=== PATIENT | female | born 1990 | race Caucasian/White ===

== ENCOUNTER → 2020-05-13 09:07 | Outpatient (CLI) | payer MEDICAID, SELFPAY ==
--- NOTE | 2020-05-13 09:09 | US_ITS ---
STUDY: ABDOMINAL ULTRASOUND - RIGHT UPPER QUADRANT REASON FOR VISIT: Female, 30 years old HEP C -- HX OF CHOLECYSTECTOMY AND PANC DUCT REPAIR 2006 TECHNIQUE: Ultrasound evaluation of the right upper quadrant was performed with real-time and static stephen-scale imaging. TECHNICAL QUALITY: Adequate. COMPARISON: None. FINDINGS: Liver: The liver measures 13.6 cm. There is normal echogenicity of the liver. The bile ducts are within normal limits. There is hepatic color flow. The direction of portal flow is hepatopetal. There is no demonstrated mass lesion. Gallbladder: The patient is status post cholecystectomy. There is a 3.9 cm x 1.9 cm x 1.5 cm small fluid collection in the gallbladder fossa. Common Bile Duct (C.B.D.): The common bile duct measures 6.2 mm. Pancreas: There is nonvisualization of the pancreas due to overlying bowel gas. Right Kidney: Normal size of the right kidney. The right kidney measures 11.2 cm x 5.9 cm x 4.3 cm. Normal renal cortex. The right cortex measures 1.5 cm. There is no demonstrated renal mass or cyst. There is no right hydronephrosis. IMPRESSION: Status post cholecystectomy. Small fluid collection at the level of the gallbladder fossa. Electronically Signed: Bruno Ayan, at 11:09 EST , Service support , STUDY: ABDOMINAL ULTRASOUND - ELASTOGRAPHY REASON FOR VISIT: Female, 30 years old. History of hepatitis C. TECHNIQUE: Liver stiffness measurements were obtained on a [employer] 85 ultrasound machine using a CA 1-7 probe following the SRU guidelines. 3 measurements were obtained using a 2-D-SWE method. The IQR/M was 23% suggesting a quality data set. TECHNICAL QUALITY: Adequate. COMPARISON: None. FINDINGS: Liver: There is no demonstrated mass lesion. Median liver stiffness measured 6 kPa. US/Elastography Parenchyma/Organ IMPRESSION: Liver stiffness measures 6 kPa compatible with F2 -- F3 Metavir score. Electronically Signed: Bruno Botello, at 11:14 EST , Service support ,
--- NOTE | 2020-05-13 09:09 | US_ITS ---
STUDY: ABDOMINAL ULTRASOUND - RIGHT UPPER QUADRANT REASON FOR VISIT: Female, 30 years old HEP C -- HX OF CHOLECYSTECTOMY AND PANC DUCT REPAIR 2006 TECHNIQUE: Ultrasound evaluation of the right upper quadrant was performed with real-time and static stephen-scale imaging. TECHNICAL QUALITY: Adequate. COMPARISON: None. FINDINGS: Liver: The liver measures 13.6 cm. There is normal echogenicity of the liver. The bile ducts are within normal limits. There is hepatic color flow. The direction of portal flow is hepatopetal. There is no demonstrated mass lesion. Gallbladder: The patient is status post cholecystectomy. There is a 3.9 cm x 1.9 cm x 1.5 cm small fluid collection in the gallbladder fossa. Common Bile Duct (C.B.D.): The common bile duct measures 6.2 mm. Pancreas: There is nonvisualization of the pancreas due to overlying bowel gas. Right Kidney: Normal size of the right kidney. The right kidney measures 11.2 cm x 5.9 cm x 4.3 cm. Normal renal cortex. The right cortex measures 1.5 cm. There is no demonstrated renal mass or cyst. There is no right hydronephrosis. IMPRESSION: Status post cholecystectomy. Small fluid collection at the level of the gallbladder fossa. Electronically Signed: Bruno Ayan, at 11:09 EST , Service support , STUDY: ABDOMINAL ULTRASOUND - ELASTOGRAPHY REASON FOR VISIT: Female, 30 years old. History of hepatitis C. TECHNIQUE: Liver stiffness measurements were obtained on a [employer] 85 ultrasound machine using a CA 1-7 probe following the SRU guidelines. 3 measurements were obtained using a 2-D-SWE method. The IQR/M was 23% suggesting a quality data set. TECHNICAL QUALITY: Adequate. COMPARISON: None. FINDINGS: Liver: There is no demonstrated mass lesion. Median liver stiffness measured 6 kPa. US/Abdomen Limited IMPRESSION: Liver stiffness measures 6 kPa compatible with F2 -- F3 Metavir score. Electronically Signed: Bruno Botello, at 11:14 EST , Service support ,
== END ==
PROVIDERS: PCP Nurse Practitioner Family; Referring Provider Nurse Practitioner Family; Visit Provider Nurse Practitioner Family
DX: B19.20 Unspecified viral hepatitis C without hepatic coma (principal)
CPT/HCPCS: 76705; 76981

== ENCOUNTER 2023-08-12 10:37 | Emergency (ER) | payer MEDICAID, SELFPAY ==
[2023-08-12 10:39] VITALS: BP 157/92; PULSE 116; RESP 18; TEMP 37.3; O2SAT 100; BMI 36.8
[2023-08-12 11:04] VITALS: BP 170/111; PULSE 105
--- NOTE | 2023-08-12 11:17 | EDS_ITS ---
HPI HPI - Female History of Present Illness Chief Complaint: Female C/O Detail of Chief Complaint: Vaginal bleeding for 3 months Informant: patient Pain Pain: Negative for Pelvic Pain, Vulvar Pain or Vaginal Pain Bleeding Issue: Positive for Vaginal bleeding (Blood only when she wipes) Current Severity: Spotting Maximum Severity: Spotting Associated Symptoms Associated Symptoms: Positive for Irregular Period; Negative for Dysuria, Frequency, Urgency or Hematuria Test: Negative (X 3) Sexually: Positive for Active Control: No control Narrative Narrative: Patient is a 33-year-old woman who presents with vaginal bleeding for approximately 3 months. She noticed blood when she wipes. She does not even need to use a pad. She denies dysuria, frequency, urgency or hematuria. She denies dyspareunia. She denies history of STI. She denies vaginal discharge. She denies history of endometriosis or ovarian cyst. She states she is performed 3 home test and was negative. She denies pelvic, vaginal or abdominal pain. Prior similar symptoms: No Recent Illness/Hospitalization: No PFSH PFSH Medical History delivery delivered Cholecystectomy planned Hepatitis C Hypothyroidism Pancreatitis Home Medications doxepin 75 mg capsule 75 mg PO DAILY 08/12/23 [History Last Taken Unknown] levothyroxine 25 mcg tablet 25 mcg PO DAILY 08/12/23 [History Last Taken Unknown] norgestimate 0.18 mg/0.215 mg/0.25 mg-ethinyl estradiol 25 mcg tablet ([id number]) 1 tab PO DAILY 08/12/23 [History Last Taken Unknown] Allergy/AdvReac Type Severity Reaction Status Date / Time Penicillins AdvReac Intermediate Enlarged Verified 08/12/23 10:39 spleen Social History (Updated 08/12/23 @ 11:[address] Oral Nice MD) household members: children Smoking Status: Current every day smoker tobacco type: cigarettes ROS ROS ED Constitutional Constitutional ED: Denies chills, fever(s), subjective or sweats Eyes Eyes: Denies blurry vision, change in vision or diplopia ENT ENT ED: Denies ear pain, rhinorrhea or sore throat Cardiovascular Cardiovascular: Denies chest pain, orthopnea, palpitations or paroxysmal nocturnal dyspnea Respiratory/Chest Respiratory/Chest: Denies cough, dyspnea, dyspnea on exertion, orthopnea or paroxysmal nocturnal dyspnea Gastrointestinal Gastrointestinal: Denies abdominal pain, constipation, diarrhea, melena, nausea or vomiting Genitourinary Genitourinary ED: Denies dysuria, hematuria or urinary frequency Musculoskeletal Musculoskeletal: Denies arthralgias, myalgias or neck pain Integumentary Denies rash Hematologic/Lymphatic Hematologic/Lymphatic: Denies easy bleeding or easy bruising EXAM Physical Exam Const Vital Signs: 08/12/23 10:39 08/12/23 11:04 08/12/23 12:45 Temperature 99.1 F Temperature Source Temporal Pulse Rate 116 H 105 H 95 Respiratory Rate 18 17 Blood Pressure 157/92 H 170/111 H 139/88 H Blood Pressure Mean 113 130 105 Pulse Ox 100 Positive well nourished, well developed and obese Constitutional Narrative: Patient reports a 50 pound weight gain in the month. She states her weight has been stable since February. General Appearance ED: well developed and NAD; Negative for pallor Nutritional Appearance: obese HEENT Reports TM's clear and moist mucous membranes Tympanic Membrane ED: Yes TM's clear Eyes PERRL and EOMs intact bilaterally General Eye ED: Negative for pale conjunctiva or scleral icterus Neck no lymphadenopathy, supple and no JVD Chest Wall inspection of chest normal and palpation of chest normal Resp normal respiratory effort and clear to auscultation bilaterally Cardio regular rate, regular rhythm, S1 normal heart sound, no murmurs and no JVD GI normal to inspection, nondistended, normoactive bowel sounds, soft to palpation, non-tender, non-distended and no masses Narrative: External genitalia is normal. Vaginal mucosa is normal. Patient has scant amount of blood from the cervix. Bimanual exam is limited due to body habitus. There is no discomfort or pressure inside bladder. There is no cervical motion tenderness. There is no enlargement of the uterus. Unable to determine size of uterus. There is no adnexal tenderness. Unable to feel the ovaries. Back/Spine no CVA tenderness Extremity normal to inspection General Extremety ED: Negative for edema or tenderness General Extremity: Negative for edema Neuro oriented x3, CN's II-XII intact bilaterally and no sensory deficits noted Sensorium / Orientation: alert Psych mental status grossly normal Skin no rashes or lesions noted and no wounds General Skin Exam: Negative for jaundice or pallor MDM MDM MDM Narrative Medical decision making narrative: Will obtain urine. If there is blood in urine will workup for urologic cause. There is no blood in her urine will perform pelvic to see if there is any irritation or reason for vaginal or cervical bleeding. Serum test was obtained as well. Lab Data Attestation: I reviewed the patient's lab results. Lab results narrative: CBC is normal. UA is unremarkable. test is negative. Labs: Laboratory Results - last 24 hr 08/12/23 08/12/23 11:20 11:25 WBC 7.9 RBC 4.77 Hgb 15.0 Hct 44.6 MCV 93.5 MCH 31.4 MCHC 33.6 RDW Std Deviation 43.2 RDW Coeff of Mackenzie 12.5 Plt Count 286 MPV 9.8 Immature Gran % (Auto) 0.100 Neut % (Auto) 53.8 Lymph % (Auto) 40.3 [place] % (Auto) 4.6 Eos % (Auto) 0.8 Baso % (Auto) 0.4 Absolute Neuts (auto) 4.2 Absolute Lymphs (auto) 3.16 Nucleated RBC % 0 Serum , Qual NEGATIVE Urine Color Yellow Urine Clarity Clear Urine pH 7.0 Ur Specific Mobile 1.010 Urine Protein Negative Urine Glucose (UA) Normal Urine Ketones Negative Urine Occult Blood 50 H Urine Nitrite Negative Urine Bilirubin Negative Urine Urobilinogen Normal Ur Leukocyte Esterase Negative Urine RBC 0-5 SEEN Urine WBC 0 SEEN Ur Squamous Epith Cells 0-5 SEEN Urine Bacteria 0 SEEN Urine Mucus 0 SEEN Discharge Plan Triage Chief Complaint: Female C/O ED Provider: Oral Nice Dx/Rx/DC Orders Clinical Impression: Abnormal uterine and vaginal bleeding, unspecified Instructions: ED Dysfunctional Uterine Bleeding Prescriptions: No Action doxepin 75 mg capsule 75 mg PO DAILY Patient Comments: TAKE 1 CAPSULE BY MOUTH AT BEDTIME levothyroxine 25 mcg tablet 25 mcg PO DAILY Patient Comments: TAKE 1 TABLET BY MOUTH ONCE DAILY norgestimate-ethinyl estradiol [[id number]] 0.18/0.215/0.25 mg-25 mcg tablet 1 tab PO DAILY Patient Comments: TAKE 1 TABLET BY MOUTH ONCE DAILY Primary Care Provider: Daynaa Madison NP Referrals: Carlito Luna MD [Med Staff - Active Staff] - 1-2 Weeks Dayana Madison NP, CONTACT [facility] [Primary Care Provider] - Disposition Disposition: Home, Self Care
[2023-08-12 11:37] LABS: Bacteria 0 SEEN /hpf (None Seen); Mucous, Urine 0 SEEN /hpf (<or=2+); White Blood Cells 0 SEEN /hpf (0-5)
[2023-08-12 11:46] LABS: Color, Urine Yellow (Yellow); Glucose, Dipstick Normal (Normal); Ketone-Dipstick Negative (Negative); Leukocyte Esterase-Dipstick Negative /ul (Negative); Nitrite-Dipstick Negative (Negative); Occult Blood-Urine 50 /ul (Negative); Protein-Dipstick Negative (Negative); Urine Bilirubin Dipstick Negative (Negative); Urine Clarity Clear (Clear); Urine Urobilinogen Normal (Normal)
[2023-08-12 11:53] LABS: Red Blood Cells-Urine 0-5 SEEN /hpf (0-5); Squamous Epithelial Cells - UA 0-5 SEEN /hpf (5-10)
[2023-08-12 11:55] LABS: Absolute Lymphocyte Count 3.16 X10^3/uL (0.83-4.51); Absolute Neutrophil Count 4.2 X10^3/uL (2.0-7.7); Basophil# 0.03 X10^3/uL; Basophil% 0.4 % (0-1); Eosinophil# 0.06 X10^3/uL; Eosinophils% 0.8 % (0-5); Hematocrit 44.6 % (37-47); Lymphocyte # 3.16 X10^3/ul (0.83-4.51); Lymphocyte % 40.3 % (19-41); Mean Corp Hgb Conc 33.6 g/dL (32-36); Mean Corpuscular Hgb 31.4 pg (27.0-32.0); Mean Corpuscular Volume 93.5 fL (81-99); Mean Platelet Vol. 9.8 fl (6.2-12.0); Monocyte# 0.36 X10^3/uL; Monocyte% 4.6 % (0-10); NRBC Flagged by Analyzer 0 % (0-5); Neutrophil # 4.23 X10^3/uL (2.7-7.7); Neutrophil % 53.8 % (47-70); Platelet Count 286 K/mm3 (150-450); RBC Distribution Width CV 12.5 % (11.6-14.6); RBC Distribution Width SD 43.2 fl (35.1-43.9); Red Blood Count 4.77 M/mm3 (4.2-5.4); White Blood Count 7.9 K/mm3 (4.4-11.0)
[2023-08-12 12:45] VITALS: BP 139/88; PULSE 95; RESP 17
[2023-08-12 12:57] LABS: Internal QC Validated? YES +Cl - CLEAR BKGD; Pregnancy, Serum, hCG Quali. NEGATIVE Negative; Record Kit Lot#, Serum Preg. HCG0000718086
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
[2023-08-12 13:21] VITALS: BP 138/66; PULSE 97; RESP 14; TEMP 35.8; O2SAT 97
== END 2023-08-12 13:21 | disposition home or self-care (01) ==
PROVIDERS: Emergency Provider Emergency Medicine; PCP Nurse Practitioner Family; Visit Provider Emergency Medicine
DX: N93.9 Abnormal uterine and vaginal bleeding, unspecified (principal); F17.210 Nicotine dependence, cigarettes, uncomplicated; E03.9 Hypothyroidism, unspecified; Z79.899 Other long term (current) drug therapy
CPT/HCPCS: 81001; 84703; 85025; 99283

== ENCOUNTER 2023-08-23 13:03 | Emergency (ER) | payer MEDICAID, SELFPAY ==
[2023-08-23 13:04] VITALS: BP 124/109; PULSE 78; RESP 12; TEMP 36.5; O2SAT 96; BMI 34.4
--- NOTE | 2023-08-23 13:26 | EDS_ITS ---
HPI History of Present Illness Chief Complaint: Dizziness Informant: patient Onset/Context/Timing Onset: Today Context: Sudden Onset Timing: Intermittent and Lasts (35 minutes) Quality: Racing, beating hard Location: Chest Worsened by: Nothing Relieved by: Concentrating on something Narrative Narrative: Patient presents with palpitations and dizziness that began today. Patient states that began rather suddenly. Patient states that she was feeling palpitations and decided to drive herself to the emergency department. On the way here, she started getting tunnel vision where her vision look like it was starting to go black. Patient was able to pull off to the side of the road. Patient states she felt her heart racing and beating hard at that time. Patient states she felt like she was having some anxiety. Patient states it got better when she tried to concentrate on something. Patient states that when she relaxes her symptoms returned. Patient admits to some nausea but denies any vomiting. Patient admits to some subjective chills but denies any fevers. [facility] Medical History (Updated 08/23/23 @ 15:[address] Robert Jackson DO) delivery delivered Cholecystectomy planned Hepatitis C Hypertension Hypothyroidism Pancreatitis Home Medications doxepin 75 mg capsule 75 mg PO DAILY 08/12/23 [History Last Taken Unknown] levothyroxine 25 mcg tablet 25 mcg PO DAILY 08/12/23 [History Last Taken Unknown] norgestimate 0.18 mg/0.215 mg/0.25 mg-ethinyl estradiol 25 mcg tablet ([id number]-[id number]) 1 tab PO DAILY 08/12/23 [History Last Taken Unknown] amlodipine 5 mg tablet 5 mg PO DAILY 08/23/23 [History Last Taken Unknown] Allergy/AdvReac Type Severity Reaction Status Date / Time Penicillins AdvReac Intermediate Enlarged Verified 08/23/23 13:03 spleen Surgical History (Updated 08/23/23 @ 14:[address] Robert Jackson DO) History of pancreatic surgery Hx of section Hx of cholecystectomy Social History household members: children Smoking Status: Current every day smoker tobacco type: cigarettes ROS ROS ED Constitutional Constitutional ED: Reports chills; Denies fever(s) Eyes Eyes: Reports blurry vision and change in vision ENT ENT ED: Denies rhinorrhea or sore throat Cardiovascular Cardiovascular: Reports palpitations; Denies chest pain Respiratory/Chest Respiratory/Chest: Denies cough or dyspnea Gastrointestinal Gastrointestinal: Reports nausea; Denies vomiting Genitourinary Genitourinary ED: Denies dysuria or hematuria Musculoskeletal Musculoskeletal: Reports neck pain; Denies back pain Integumentary Denies abscess or rash Neurologic Neurologic: Reports headache(s); Denies weakness Allergic/Immunologic Allergic/Immunologic ED: Denies mouth swelling or urticaria EXAM Physical Exam Const Vital Signs: 08/23/23 13:04 08/23/23 13:10 Temperature 97.7 F L Temperature Source Temporal Pulse Rate 78 Respiratory Rate 12 Respiratory Effort Normal Non-Labored Respiratory Pattern Normal Blood Pressure 124/109 H Blood Pressure Mean 114 Pulse Ox 96 Oxygen Delivery Method Room Air Positive well nourished, well developed and obese General Appearance ED: well developed and NAD Nutritional Appearance: obese HEENT Reports moist mucous membranes Neck supple and no JVD Resp normal respiratory effort and clear to auscultation bilaterally Cardio regular rate and regular rhythm GI non-tender and non-distended Palpation: soft Neuro oriented x3, CN's II-XII intact bilaterally and no sensory deficits noted Sensorium / Orientation: alert Motor Exam: strength 5/5 throughout Psych mental status grossly normal MDM MDM MDM Narrative Medical decision making narrative: Differential diagnosis includes cardiac dysrhythmia, cardiac ischemia, electrolyte abnormality, hypothyroidism, hyperthyroidism, urinary tract infection, viral infection, pneumonia, and pneumothorax. EKG will be obtained to assess for cardiac dysrhythmia and cardiac ischemia. Chest x-ray will be obtained to assess for pneumonia and pneumothorax. CBC will be obtained to assess for leukocytosis and anemia. Basic metabolic profile will be obtained to assess for electrolyte abnormality and renal function. High-sensitivity tropon in will be obtained to assess for cardiac ischemia. TSH will be obtained to assess for hypothyroidism and hyperthyroidism. Urinalysis will be obtained to assess for urinary tract infection. COVID-19, influenza, and RSV PCR will be obtained to assess for viral illness. Lab Data Attestation: I reviewed the patient's lab results. Lab results narrative: CBC was reviewed and was essentially within normal limits. Basic metabolic profile was reviewed and was within normal limits. High-sensitivity troponin was reviewed and was normal at 3. TSH was reviewed and was normal at 0.36. Urinalysis was reviewed. There is no evidence of urinary tract infection or hematuria. COVID-19 PCR was reviewed and was negative. Influenza PCR was reviewed and was negative for influenza A and influenza B. RSV PCR was reviewed and was negative. Labs: Laboratory Results - last 24 hr 08/23/23 08/23/23 14:00 14:05 WBC 9.5 RBC 4.77 Hgb 15.2 H Hct 44.1 MCV 92.5 MCH 31.9 MCHC 34.5 RDW Std Deviation 41.2 RDW Coeff of [place] 12.0 Plt Count 266 MPV 9.9 Immature Gran % (Auto) 0.300 Neut % (Auto) 71.2 H Lymph % (Auto) 24.5 [place] % (Auto) 3.4 Eos % (Auto) 0.4 Baso % (Auto) 0.2 Absolute Neuts (auto) 6.7 Absolute Lymphs (auto) 2.32 Nucleated RBC % 0 Sodium 139 Potassium 4.7 Chloride 109 H Carbon Dioxide 26.0 Anion Gap 4 L BUN 11 Creatinine 0.76 Estim Creat Clear Calc 113.03 Est GFR (MDRD) Af Amer 110 Est GFR (MDRD) Non-Af 91 BUN/Creatinine Ratio 14.4 Glucose 93 Calcium 9.3 Troponin I High Sens 3 TSH 0.36 Urine Color Yellow Urine Clarity Sl. Cloudy Urine pH 7.0 Ur Specific [place] 1.010 Urine Protein Negative Urine Glucose (UA) Normal Urine Ketones Negative Urine Occult Blood 10 H Urine Nitrite Negative Urine Bilirubin Negative Urine Urobilinogen Normal Ur Leukocyte Esterase Negative Urine RBC 0-5 SEEN Urine WBC 0 SEEN Ur Squamous Epith Cells 0 SEEN Urine Bacteria 0 SEEN Urine Mucus 0 SEEN Radiography Diagnostic Testing: Clinical Impression(s) from Imaging Studies Chest X-Ray 08/23/23 14:38 IMPRESSION: No acute cardiopulmonary disease. Electronically Signed: Hi Moeller MD at 15:01 EST , PA and lateral chest x-ray was obtained. There are 2 views. On my independent interpretation, lung doe are clear. There is normal cardiac silhouette. Bony thorax is normal. There is no acute process noted. Radiologist also interpreted the x-ray and agrees. EKG Initial EKG: Attestation: I personally reviewed and interpreted this EKG as follows: Interpretation: Sinus Rhythm (72) and No Acute Injury Pattern Comments: EKG was obtained. On my independent interpretation, it showed a normal sinus rhythm with a rate of 72. PA interval, QRS interval, and QTc intervals were all normal. [place] was normal. There are no acute ST or T wave changes. Prior EKG tracings: not available for review Prior: No Prior Treatment and Re-Evaluation :: Smoking cessation was discussed. Patient was given IV fluids. Patient was feeling better on reevaluation. Patient was advised of her findings. Patient was instructed to drink plenty of fluids. Patient was instructed to follow-up with her primary care physician in 5 to 7 days. Patient understood and was agreeable with the plan. All questions were answered. Discharge Plan Triage Chief Complaint: Dizziness ED Provider: Robert Jackson Dx/Rx/DC Orders Clinical Impression: Heart palpitations, Hypertension Instructions: ED Palpitations Prescriptions: No Action doxepin 75 mg capsule 75 mg PO DAILY Patient Comments: TAKE 1 CAPSULE BY MOUTH AT BEDTIME levothyroxine 25 mcg tablet 25 mcg PO DAILY Patient Comments: TAKE 1 TABLET BY MOUTH ONCE DAILY norgestimate-ethinyl estradiol [Bnw-Ps-Hvazmpzoj] 0.18/0.215/0.25 mg-25 mcg tablet 1 tab PO DAILY Patient Comments: TAKE 1 TABLET BY MOUTH ONCE DAILY amlodipine 5 mg tablet 5 mg PO DAILY Patient Comments: TAKE 1 TABLET BY MOUTH ONCE DAILY Primary Care Provider: Dayana Madison NP Referrals: Dayana Madison NP, CARE ATTENDANT-C [Primary Care Provider] - 5-7 Days Disposition Disposition: Home, Self Care
--- NOTE | 2023-08-23 13:44 | EKG12_ITS ---
Test Reason : DIZZINESS Blood Pressure : / mmHG Vent. Rate : 072 BPM Atrial Rate : 072 BPM P-R Int : 158 ms QRS Dur : 082 ms QT Int : 382 ms P-R-T Axes : 033 053 042 degrees QTc Int : 418 ms Normal sinus rhythm Normal ECG Confirmed by GUERA BROWN, JULIÁN ([id number]), editor & co founder AKILA RANDOLPH ([id number]) on 08/30/2023 9:50:52 AM Referred By: Confirmed By:CRISSY LYNNE MD
[2023-08-23] MEDS: 0.9% Normal Saline (1000mL) 1,000 ML 1000 ML IV (14:03)
[2023-08-23 14:06] LABS: Bacteria 0 SEEN /hpf (None Seen); Mucous, Urine 0 SEEN /hpf (<or=2+); Squamous Epithelial Cells - UA 0 SEEN /hpf (5-10); White Blood Cells 0 SEEN /hpf (0-5)
[2023-08-23 14:18] LABS: Absolute Lymphocyte Count 2.32 X10^3/uL (0.83-4.51); Absolute Neutrophil Count 6.7 X10^3/uL (2.0-7.7); Basophil# 0.02 X10^3/uL; Basophil% 0.2 % (0-1); Eosinophil# 0.04 X10^3/uL; Eosinophils% 0.4 % (0-5); Hematocrit 44.1 % (37-47); Hemoglobin 15.2 g/dL (12.0-15.0); Lymphocyte # 2.32 X10^3/ul (0.83-4.51); Lymphocyte % 24.5 % (19-41); Mean Corp Hgb Conc 34.5 g/dL (32-36); Mean Corpuscular Hgb 31.9 pg (27.0-32.0); Mean Corpuscular Volume 92.5 fL (81-99); Mean Platelet Vol. 9.9 fl (6.2-12.0); Monocyte# 0.32 X10^3/uL; Monocyte% 3.4 % (0-10); NRBC Flagged by Analyzer 0 % (0-5); Neutrophil # 6.74 X10^3/uL (2.7-7.7); Neutrophil % 71.2 % (47-70); Platelet Count 266 K/mm3 (150-450); RBC Distribution Width SD 41.2 fl (35.1-43.9); Red Blood Count 4.77 M/mm3 (4.2-5.4); White Blood Count 9.5 K/mm3 (4.4-11.0)
[2023-08-23 14:21] LABS: Color, Urine Yellow (Yellow); Glucose, Dipstick Normal (Normal); Ketone-Dipstick Negative (Negative); Leukocyte Esterase-Dipstick Negative /ul (Negative); Nitrite-Dipstick Negative (Negative); Occult Blood-Urine 10 /ul (Negative); Protein-Dipstick Negative (Negative); Urine Bilirubin Dipstick Negative (Negative); Urine Clarity Sl. Cloudy (Clear); Urine Urobilinogen Normal (Normal)
[2023-08-23 14:32] LABS: Red Blood Cells-Urine 0-5 SEEN /hpf (0-5)
--- NOTE | 2023-08-23 14:38 | RAD_ITS ---
EXAM: XR CHEST, 2 VIEWS CLINICAL INDICATION: Palpitations TECHNIQUE: Frontal and lateral views of the chest. COMPARISON: No relevant prior studies available. FINDINGS: LUNGS AND PLEURAL SPACES: Normal. No consolidation or edema. No pneumothorax. No effusion. HEART: Normal heart size. MEDIASTINUM: No mediastinal or hilar mass. BONES/JOINTS: No acute abnormality. RAD/Chest PA and Lateral IMPRESSION: No acute cardiopulmonary disease. Electronically Signed: Hi Moeller MD at 15:01 EST ,
[2023-08-23 14:49] LABS: Anion Gap 4 (5-15); BUN 11 mg/dL (7-18); BUN/Creat Ratio 14.4 RATIO (10-20); Calcium,Total 9.3 mg/dL (8.5-10.1); Chloride 109 mmol/L (98-107); Creatinine, Serum 0.76 mg/dL (0.55-1.02); EST Glomerular Filtration Rate 91 mL/min (>60); Est Glom Filt Rate - Afr Amer 110 mL/min (>60); Estimated Creatinine Clearance 113.03 ml/min; Glucose 93 mg/dL (74-106); Potassium 4.7 mmol/L (3.5-5.1); Sodium Level 139 mmol/L (136-145); Thyroid Stim Hormone (TSH) 0.36 uIU/mL (0.358-3.74); Troponin-I HS 3 pg/mL (3.0-54.0)
[2023-08-23 15:03] VITALS: BP 137/94
[2023-08-23 15:27] VITALS: BP 137/94; PULSE 76; RESP 16; TEMP 36.2; O2SAT 98
== END 2023-08-23 15:29 | disposition home or self-care (01) ==
PROVIDERS: Emergency Provider Emergency Medicine; PCP Nurse Practitioner Family; Visit Provider Emergency Medicine
DX: R42 Dizziness and giddiness (principal); R00.2 Palpitations; I10 Essential (primary) hypertension; E03.9 Hypothyroidism, unspecified; E66.9 Obesity, unspecified; F17.210 Nicotine dependence, cigarettes, uncomplicated; Z68.34 Body mass index [BMI] 34.0-34.9, adult; Z79.899 Other long term (current) drug therapy
CPT/HCPCS: 71046; 80048; 81001; 84443; 84484; 85025; 87631; 93005; 96360; 99284; J7030

== ENCOUNTER 2023-11-24 10:51 | Emergency (ER) | payer MEDICAID, SELFPAY ==
[2023-11-24 10:52] VITALS: BP 156/114; PULSE 125; RESP 20; TEMP 36.3; O2SAT 99; BMI 35.7
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
[2023-11-24] MEDS: LORazepam 1 MG Tablet PO (11:16)
[2023-11-24 12:52] VITALS: BP 128/76; PULSE 64; RESP 14; O2SAT 98
[2023-11-24 13:21] VITALS: BP 129/78; PULSE 78; RESP 16; TEMP 37.1; O2SAT 99
== END 2023-11-24 13:22 | disposition home or self-care (01) ==
PROVIDERS: Emergency Provider Emergency Medicine; PCP Family Medicine; Visit Provider Emergency Medicine
DX: F41.0 Panic disorder [episodic paroxysmal anxiety] (principal); F41.1 Generalized anxiety disorder; F17.210 Nicotine dependence, cigarettes, uncomplicated; Z63.4 Disappearance and death of family member; Z79.899 Other long term (current) drug therapy
CPT/HCPCS: 99282